=== PATIENT | male | born 1970 | race African-American/Black ===

== ENCOUNTER 2016-09-30 12:56 | Emergency (ER) | payer OTHER ==
[2016-09-30 13:06] VITALS: O2SAT 97
--- NOTE | 2016-09-30 13:56 | C.PDOC ---
History Of Present Illness Patient presents to ED c/o penile discomfort and retracted foreskin since this morning. He denies penile lesions/discharge, fever, dysuria/hematuria, testicular pain. Patient not circumcised. Time Seen by Provider: 09/30/16 13:13 Chief Complaint (Nursing): Male Genitourinary History Per: Patient History/Exam Limitations: no limitations Onset/Duration Of Symptoms: Hrs Current Symptoms Are (Timing): Still Present Severity: Mild Quality Of Discomfort: Other (discomfort) Associated Symptoms: denies: Fever, Chills, Nausea, Urinary Symptoms Past Medical History Reviewed: Historical Data, Nursing Documentation, Vital Signs Vital Signs: Last Vital Signs Temp 98.1 F 09/30/16 13:03 Pulse 88 09/30/16 13:03 Resp 19 09/30/16 13:03 BP 121/77 09/30/16 13:03 Pulse Ox 97 09/30/16 16:23 - Medical History PMH: No Chronic Diseases Family History: States: No Known Family Hx - Social History Hx Alcohol Use: Yes Hx Substance Use: No - Immunization History Hx Tetanus Toxoid Vaccination: No Hx Influenza Vaccination: No Hx Pneumococcal Vaccination: No Review Of Systems Except As Marked, All Systems Reviewed And Found Negative. Constitutional: Negative for: Fever, Chills Gastrointestinal: Negative for: Nausea, Vomiting, Abdominal Pain, Diarrhea Genitourinary: Positive for: Penile Pain. Negative for: Dysuria, Hematuria, Rash Physical Exam - Physical Exam Appears: Well, Non-toxic, No Acute Distress Skin: Normal Color, Warm, Dry Oral Mucosa: Moist Cardiovascular: Rhythm Regular Respiratory: Normal Breath Sounds, No Rales, No Rhonchi, No Wheezing Gastrointestinal/Abdominal: Normal Exam, Bowel Sounds, Soft, No Tenderness Male Genital: No Testicular Tenderness, No Testicular Swelling, No Inguinal Tenderness, No Inguinal Swelling, No Scrotal Swelling, Other (paraphimosis with mild swelling, (+) TTP) Neurological/Psych: Oriented x3 ED Course And Treatment O2 Sat by Pulse Oximetry: 97 (RA) Pulse Ox Interpretation: Normal Progress Note: Granulated sugar applied to penis and under condom catheter, + ice packs to decrease swelling (prior to attempt at reduction). 2:40PM- Spoke with Dr. Caldera, aware of unsuccessful reduction of paraphimosis by az - he recommends IV pain medication and retry, call back if unsuccessful. 3:15pm- Urojet and viscous lidocaine applied to penile head, will attempt reduction in approx 10 min. 3:40pm- Patient still unable to tolerate reduction, will try penile block with lidocaine as instruted by Dr. Caldera. 4:00pm- Paraphimosis successfully reduced - will observe for 10-15 min. Reevaluation Time: 16:20 Reassessment Condition: Improved (Patient resting comfortably, paraphimosis still successfully reduced. Will discharge home, patient instructed to follow up with uroogy within 1 week. He understands he should return to ED if symptoms worsen.) - Physician Consult Information Physician Contacted: Remy Caldera Disposition Counseled Patient/Family Regarding: Diagnosis, Need For Followup - Disposition Referrals: Remy Caldera MD [Staff Provider] - Disposition Time: 16:20 Condition: STABLE Additional Instructions: FOLLOW UP WITH UROLOGY [facility] 1 WEEK USE MOTRIN OR TYLENOL FOR PAIN NEEDED RETURN TO ER IF SYMPTOMS RETURN Instructions: Acute Paraphimosis (ED) Print Language: TURKMEN - POA Present On Arrival: None - Clinical Impression Clinical Impression: Paraphimosis
[2016-09-30] MEDS ORDERED: Oxycodone/Acetaminophen 5/325 mg Tab PO STA (14:44)
[2016-09-30] MEDS ORDERED: Sodium Chloride 0.9% 1,000 ML IV ONE (14:49)
[2016-09-30] MEDS ORDERED: Oxycodone/Acetaminophen 5/325 mg Tab ONE (14:50)
[2016-09-30] MEDS ORDERED: Morphine 4 MG/ML VIAL ONE (14:57)
[2016-09-30] MEDS ORDERED: Lidocaine 2% Jelly (Uro-Jet) TOP ONE (14:58)
[2016-09-30] MEDS ORDERED: Lidocaine 4% (Laryng-O-Jet) Kit MM ONE (15:08)
[2016-09-30] MEDS ORDERED: Lidocaine 1% Inj (20ml) INFIL ONE (15:41)
[2016-09-30] MEDS ORDERED: Lidocaine 1% Inj (20ml) ONE (15:42)
[2016-09-30 16:30] VITALS: BP 131/86; PULSE 78; RESP 18; TEMP 98.5
== END 2016-09-30 16:27 | disposition home or self-care (01) ==
LOC: C.ER 12:56
DX: N47.2 Paraphimosis (principal)
CPT/HCPCS: 96361; 96374; 99284; J2270; J7040